=== PATIENT | male | born 1955 | race Hispanic/Latino ===

== ENCOUNTER 2023-06-18 09:57 | Emergency (ER) | payer MEDICARE, SELFPAY ==
[2023-06-18 10:01] VITALS: BP 162/72; PULSE 69; RESP 16; TEMP 36.6; O2SAT 100
--- NOTE | 2023-06-18 10:16 | ED.MALEGU ---
HPI - Male Genitourinary General Chief complaint: Urogenital-Male Stated complaint: frequent urination Time Seen by Provider: 06/18/23 10:03 History of Present Illness HPI Narrative: Pt presents with urinary urgency and frequency since last night. Pt denies discharge. Pt denies fever or flank pain. Related Data Allergies Allergy/AdvReac Type Severity Reaction Status Date / Time No Known Allergies Allergy Verified 06/18/23 09:58 Review of Systems Review of Systems: All systems reviewed & are unremarkable except as noted in HPI and below Exam Const: General: healthy appearing Nutritional Appearance: well nourished Limitations: language barrier Eyes: EOM: EOMs intact bilaterally Resp: Effort & Inspection: normal respiratory effort Auscultation: clear to auscultation bilaterally Cardio: Rate: regular rate Rhythm: regular rhythm GI: GI Palp: Yes Soft to palpation and No Tenderness to palpation present (GI) Auscultation: normal bowel sounds Other: bladder not noticablly distended : General: Yes bladder normal to palpation Back/Spine/Pelvis: Back: no CVA tenderness Skin: General skin exam: normal color Rashes: no rashes Wounds: no wounds Neuro: General: patient oriented x3, moves all extremities, no meningeal signs and no focal motor deficits Speech: normal speech Extrem: General: normal to inspection and no clubbing, cyanosis or edema Psych: Mental Status: mental status grossly normal Affect: normal affect Attitude: cooperative Course Vital Signs Vital signs: Vital Signs Temperature 97.8 F 06/18/23 10:01 Pulse Rate 69 06/18/23 10:01 Respiratory Rate 16 06/18/23 10:01 Blood Pressure 162/72 H 06/18/23 10:01 Pulse Oximetry 100 06/18/23 10:01 Oxygen Delivery Room Air 06/18/23 10:01 Temperature 97.8 F 06/18/23 10:01 Pulse Rate 69 06/18/23 10:01 Respiratory Rate 16 06/18/23 10:01 Blood Pressure 162/72 H 06/18/23 10:01 Pulse Oximetry 100 06/18/23 10:01 Oxygen Delivery Room Air 06/18/23 10:01 MDM - Male Genitourinary MDM Narrative Medical decision making narrative: uti vs bph will get UA. UA looks fine, likely BPH. will start on flomax and have follow up with urology. Lab Data Labs: Lab Results 06/18/23 Range/Units 10:36 Urine Color Yellow (Yellow) Urine Appearance Clear (Clear) Urine pH 5.5 (5.0-9.0) Ur Specific [place] 1.017 (1.001-1.035) Urine Protein Negative (Negative) mg/dL Urine Glucose (UA) 3+ H (Negative) mg/dL Urine Ketones Negative (Negative) mg/dL Ur Blood (Man) 1+ H (Negative) Urine Nitrate Negative (Negative) Urine Bilirubin Negative (Negative) Urine Urobilinogen 0.2 (<2.0) mg/dL Leukocyte Esterase Rfl Negative (Negative) ELO/UL Urine RBC 0-2 (0-2) /hpf Urine WBC 0-5 /hpf Ur Squamous Epith Cells None seen (Few) /hpf Urine Bacteria None seen /hpf Urine Casts 0-2 Discharge Plan Discharge Clinical Impression: Benign prostatic hyperplasia (BPH) with urinary urgency Patient Disposition: Home, Self-Care Condition: Stable Instructions: Antibiotic Form, Enlarged Prostate (BPH) (ED) Prescriptions: New tamsulosin [Flomax] 0.4 mg capsule 0.4 mg PO DAILY Qty: 30 0RF Follow-up/Referrals: Herminio Monae MD [Physician] - PHYSICIAN,GUIDANCE SECRETARY [Non-Staff] -
[2023-06-18 10:46] LABS: Appearance Urine Clear (Clear); Bacteria Urine None Seen /hpf; Bilirubin Urine Negative (Negative); Blood Urine 1+ (Negative); Color Urine Yellow (Yellow); Glucose Urine UA 3+ mg/dL (Negative); Ketones Urine Negative (Negative); Leukocyte Esterase Ur Negative LEU/UL (Negative); Nitrate Urine Negative (Negative); Non Pathogenic Casts 0-2; Protein Urine Negative (Negative); RBC Urine 0-2 /hpf (0-2); Specific Grav Ur 1.017 (1.001-1.035); Squamous Epithelial Cell Urine None seen /hpf (Few); Urobilinogen Urine 0.2 mg/dL (<2.0); WBC Urine 0-5 /hpf; pH Urine 5.5 (5.0-9.0)
[2023-06-18 10:57] LABS: Add Urine Microscopic? YES
== END 2023-06-18 12:34 | disposition home or self-care (01) ==
PROVIDERS: Physician Assistant; Emergency Provider Emergency Medicine
DX: N40.0 Benign prostatic hyperplasia without lower urinary tract symptoms (principal); R39.15 Urgency of urination
CPT/HCPCS: 81001; 99283

== ENCOUNTER 2023-10-18 20:34 | Emergency (ER) | payer MEDICARE, SELFPAY ==
[2023-10-18] VITALS (7 sets, daily range): BP systolic 155–200; BP diastolic 64–88; PULSE 85; RESP 18; TEMP 35.8; O2SAT 96–100
--- NOTE | ~2023-10-18 | CT_ITS ---
EXAMINATION: CT abdomen pelvis w con DATE: 10/19/2023 00:06 INDICATION: Urinary retention and hematuria. TECHNIQUE: Computed tomography (CT) of the abdomen and pelvis was performed without intravenous contr ast. The dose-length product was 653.01 mGy-cm. COMPARISON: None FINDINGS: Mild atelectasis in the bilateral lower lungs. Small pneumatocele at the basilar left lower lobe. Hea rt size is normal. No pericardial or pleural effusion. There is peripheral discontiguous puddling of contrast/with a couple large cavernous hemangiomas in the liver the largest in the right hepatic lobe measuring 7.4 cm and 4.1 minutes and the left hepatic lobe. There are also couple smaller flash fill ing hemangiomas measuring 1.3 cm at the dome of the liver and 1.9 cm in the caudate lobe. There is an additional 1 cm low-attenuation lesion with small lobular region of enhancement at the anterior dome most likely an additional small hemangioma but too small to definitively characterize. Gallbladder, spleen, pancreas, bilateral adrenal glands are normal. Subcentimeter low-attenuation cyst at the lowe r pole of the left kidney. There is mild right hydroureteronephrosis which extends to the bladder. Th ere is a small diverticulum which appears to arise from the right ureterovesicular junction. There is a Robert catheter in the bladder, the bulb of which distorts anterior wall of the bladder due to mass which appears to fill the remainder of the bladder which measures 8.9 x 7.7 cm maximal transaxial di mensions. There is also prostatomegaly which is difficult to distinguish from the base of the bladder . Bowels including the appendix are normal. No free intraperitoneal gas or fluid. No pathologically e nlarged abdominal or pelvic lymphadenopathy. Mild lumbar dextro scoliosis with moderate spondylosis. Transitional sacralized L5 segment. Likely small sclerotic bone islands at the left femoral head and a couple in the right innominate bone. IMPRESSION: 1. Material of heterogeneous attenuation filling the bladder. This could represent clot however it ap pears to exert significant enough mass effect upon the Robert catheter bulb that it distorts the anter ior wall of the bladder which raises significant concern for an intraluminal malignant mass either of bladder or prostatic origin. Reviewed, dictated and finalized at location A. SAMPLER IMPRESSION: 1. Material of heterogeneous attenuation filling the bladder. This could repres ent clot however it appears to exert significant enough mass effect upon the Fo nancy catheter bulb that it distorts the anterior wall of the bladder which raise s significant concern for an intraluminal malignant mass either of bladder or p rostatic origin.
--- NOTE | 2023-10-18 22:11 | ED.GENADULT ---
HPI - General Adult General Chief complaint: Urogenital-Male Stated complaint: blood in urine Time Seen by Provider: 10/18/23 21:39 Source: patient Mode of arrival: ambulatory Limitations: no limitations History of Present Illness HPI narrative: This is a 68-year-old male with PMH of BPH who presents to the ED with chief complaint of suprapubic discomfort and hematuria beginning today. Reports he has urgency to go but does not feel like he could go here. Reports he has had worsening nocturia x2 months. Denies fevers, chills, nausea, vomiting, dysuria, flank pain, back pain. Related Data Allergies Allergy/AdvReac Type Severity Reaction Status Date / Time No Known Allergies Allergy Verified 06/18/23 09:58 Review of Systems Review of Systems: All systems as dictated in HPI Exam Narrative: GENERAL: Well-appearing, well-nourished, and in no acute distress. HEAD: Normocephalic, atraumatic. EYES: PERRLA and EOMI. ENT: Nares clear, no rhinorrhea or epistaxis. Mucous membranes moist. Oropharynx without tonsillar hypertrophy exudate or other lesions. NECK: Supple. No adenopathy or masses. CHEST: No respiratory distress. Clear to auscultation. No wheezes rales or rhonchi HEART: Regular rate and rhythm. No murmur heard. Normal peripheral pulses. ABDOMEN: Soft, nontender, nondistended, normal active bowel sounds. Negative bilateral flank tenderness. MSK: Normal range of motion. No edema. SKIN: Warm, dry, no rash. NEURO: Alert and oriented x3. No focal deficits. PSYCH: Normal mood and affect. Course Course Emergency Course: Consult 0100: Spoke with Dr. Turk (urology), recommends having the patient follow-up in clinic. They can be sent home with Robert and leg bag as long as they remain nontoxic appearing. Vital Signs Vital signs: Vital Signs Temperature 96.5 F L 10/18/23 20:57 Pulse Rate 85 10/18/23 20:57 Respiratory Rate 18 10/18/23 20:57 Blood Pressure 200/88 H 10/18/23 20:57 Pulse Oximetry 100 10/18/23 20:57 Oxygen Delivery Room Air 10/18/23 20:57 Temperature 96.5 F L 10/18/23 20:57 Pulse Rate 85 10/18/23 20:57 Respiratory Rate 18 10/18/23 20:57 Blood Pressure 200/88 H 10/18/23 20:57 Pulse Oximetry 100 10/18/23 20:57 Oxygen Delivery Room Air 10/18/23 20:57 Medical Decision Making MDM Narrative Medical decision making narrative: This is a 68-year-old male who presents to the ED with chief complaint of urinary retention and hematuria. Vitals are show elevated blood pressure but otherwise normal. Exam is benign. No acute abdomen or flank pain. He was unable to provide a urine sample for us he was catheterized and had gross hematuria with the sample. UA shows blood and 50-75 blood cells. No leuks or nitrites. CT abdomen pelvis with contrast shows 1. Material of heterogeneous attenuation filling the bladder. This could represent clot however it appears to exert significant enough mass effect upon the Robert catheter bulb that it distorts the anterior wall of the bladder which raises significant concern for an intraluminal malignant mass either of bladder or prostatic origin.. Discussed the case with Urology who recommends having the patient follow-up with them in clinic. Discharge home with Robert bag and antibiotics. Prescription for Keflex given. Pt will be discharged in stable condition. Return precautions given and supportive measures discussed. Pt is understanding and agreeable with plan for discharge and follow-up with PCP/specialist Vital Signs Vital Signs: Vital Signs Temperature 96.5 F L 10/18/23 20:57 Pulse Rate 85 10/18/23 20:57 Respiratory Rate 18 10/18/23 20:57 Blood Pressure 200/88 H 10/18/23 20:57 Pulse Oximetry 100 10/18/23 20:57 Oxygen Delivery Room Air 10/18/23 20:57 Temperature 96.5 F L 10/18/23 20:57 Pulse Rate 85 10/18/23 20:57 Respiratory Rate 18 10/18/23 20:57 Blood Pressure 200/88 H 10/18/23 20:57
[2023-10-18 23:16] LABS: Basophils Absolute Auto 0.1 K/mm3 (0.0-0.1); Basophils Percent Auto 0.5 % (0.2-1.2); Eosinophils Absolute Auto 0.2 K/mm3 (0-0.3); Eosinophils Percent Auto 1.4 % (0-4.4); Hematocrit 32.9 % (42.0-52.0); Hemoglobin 11.3 g/dL (14.0-18.0); Immature Granulocyte Absolute 0.05 K/mm3 (0.00-0.031); Immature Granulocyte Percent A 0.3 % (0-0.5); Lymphocytes Absolute Auto 1.79 K/mm3 (0.9-3.2); Lymphocytes Percent Auto 12.1 % (18.3-44.2); Mean Corpuscular HGB Conc 34.3 g/dl (32-36); Mean Corpuscular Hemoglobin 30.2 pg (26-34); Mean Platelet Volume 9.8 fl (7.4-10.4); Monocytes Absolute Auto 0.6 K/mm3 (0.1-0.6); Monocytes Percent Auto 4.1 % (2.6-8.5); Neutrophils Percent Auto 81.6 % (45.5-73.1); Platelet Count Result 380 k/mm3 (150-375); Red Blood Count 3.74 M/mm3 (4.6-6.20); Red Cell Distribution Width 14.4 % (11.5-14.5); White Blood Count 14.7 K/mm3 (4.5-10.0)
[2023-10-18 23:50] LABS: Alanine Aminotransferase 36 U/L (6-50); Albumin Level 4.3 g/dL (3.5-5.1); Alkaline Phosphatase 87 U/L (38-126); Anion Gap 11 mmol/L (8-16); Aspartate Amino Transferase 30 U/L (17-59); Bilirubin,Total 0.9 mg/dL (0.2-1.3); Blood Urea Nitrogen 20 mg/dL (9-20); Calcium 8.9 mg/dL (8.4-10.2); Carbon Dioxide 24 mmol/L (22-30); Chloride 103 mmol/L (98-107); Estimated CRCL calculation 65 ml/min; Estimated Glomerular Filt Rate > 60; Glucose 248 mg/dL (65-110); Potassium 4.2 mmol/L (3.4-5.0); Sodium 138 mmol/L (137-145)
--- NOTE | 2023-10-18 23:59 | PC.NURSE ---
Able to place 14g coude catheter after multiple attempts with 16g and one additional 14g coude. Urojet placed prior to last attempt and able to pass. Pt has dark red blood from tucker and urine sample sent. ERP notified of hematuria, concern for clotting, and inability to pass larger catheter.
[2023-10-19] VITALS (11 sets, daily range): BP systolic 149–172; BP diastolic 69–136; PULSE 55; RESP 14; O2SAT 98–100
[2023-10-19] MEDS: LIDOCAINE HCL 2% GEL UROJET 10 ML PKG (00:01)
[2023-10-19 00:13] LABS: Appearance Urine Turbid (Clear); Bilirubin Urine Negative (Negative); Blood Urine 2+ (Negative); Glucose Urine UA 2+ mg/dL (Negative); Ketones Urine Negative (Negative); Leukocyte Esterase Ur Negative LEU/UL (Negative); Nitrate Urine Negative (Negative); Protein Urine 4+ mg/dL (Negative); Urobilinogen Urine 0.2 mg/dL (<2.0)
[2023-10-19 00:14] LABS: RBC Urine >100 /hpf (0-2); Specific Grav Ur 1.038 (1.001-1.035)
[2023-10-19 00:15] LABS: Bacteria Urine None seen /hpf; Color Urine Red (Yellow); Squamous Epithelial Cell Urine Few /hpf (Few); WBC Urine 51-75 /hpf
[2023-10-19 00:16] LABS: Add Urine Microscopic? YES
--- NOTE | 2023-10-19 01:27 | PC.NURSE ---
PT's tucker changed to leg bag and discussed care with pt. Pt verbalized understanding and return demonstrated.
--- NOTE | 2023-10-19 01:49 | PC.NURSE ---
Pt having leaking around meatus. ERP notified and states that it will likely continue to happen. Pt given mesh underwear and pad to catch leaking. Discussed with pt to purchase men's disposable briefs to contain leakage and that the urologist would likely be able to improve situation when he sees them next week. Verbalized understanding.
== END 2023-10-19 01:50 | disposition home or self-care (01) ==
PROVIDERS: Emergency Provider Physician Assistant
DX: N40.1 Benign prostatic hyperplasia with lower urinary tract symptoms (principal); R33.8 Other retention of urine; R31.9 Hematuria, unspecified; N32.89 Other specified disorders of bladder
CPT/HCPCS: 36415; 51702; 74177; 80053; 81001; 85025; 87086; 99284; Q9967

== ENCOUNTER 2023-10-19 11:03 | Observation (INO) | payer MEDICARE, SELFPAY ==
[2023-10-19] VITALS (10 sets, daily range): BP systolic 146–192; BP diastolic 60–84; PULSE 59–69; RESP 12–18; TEMP 36.6; O2SAT 98–100; BMI 24.7
--- NOTE | 2023-10-19 13:08 | ED.GENADULT ---
HPI - General Adult General Chief complaint: Unspecified <Emilee Lucas PA-C - Last Filed: 10/19/23 20:16> Stated complaint: leaking catheter <Emilee Lucas PA-C - Last Filed: 10/19/23 20:16> Time Seen by Provider: 10/19/23 12:57 <Emilee Lucas PA-C - Last Filed: 10/19/23 20:16> History of Present Illness HPI narrative: 68-year-old male reports for evaluation for leaking around his Robert catheter for approximately 12 hours. Patient was seen in the ED yesterday for suprapubic abdominal discomfort and hematuria that started yesterday. CT abdomen pelvis performed shows material of heterogeneous attenuation filling the bladder. This could represent clot however appears to exert significant enough mass effect upon the Robert catheter bulb that it distorts the anterior wall of the bladder which raises significant concern for an intraluminal malignant mass either of bladder or prostatic origin. Urology was consulted and the patient was discharged home with Keflex and a Robert bag with urology follow-up. He reports today due to gross hematuria and leaking around his Robert catheter. States he has been taking his keflex as directed. He denies abdominal pain, flank pain, fever, nausea or vomiting, history of kidney stones, dysuria, penile or scrotal pain. Denies chest pain or shortness of breath. He has been taking Flomax. <Emilee Lucas PA-C - Last Filed: 10/19/23 20:16> Related Data Allergies/adverse reactions: Allergies Allergy/AdvReac Type Severity Reaction Status Date / Time No Known Allergies Allergy Verified 10/19/23 13:03 <Emilee Lucas PA-C - Last Filed: 10/19/23 20:16> Review of Systems Review of Systems: CONSTITUTIONAL: Denies fever, chills, or sweats. EYES: Denies visual changes, redness, or discharge. ENT: Denies rhinorrhea, congestion, sore throat, or otalgia. CARDIOVASCULAR: Denies chest pain, palpitations, or edema. RESPIRATORY: Denies cough or dyspnea. GASTROINTESTINAL: No abdominal pain, nausea or vomiting GENITOURINARY: See HPI SKIN: Denies rash or itching. MUSCULOSKELETAL: Denies back pain, joint pain, or myalgia. NEUROLOGIC: Denies headache, numbness, or weakness. PSYCHIATRIC: Denies anxiety or depression. <Emilee Lucas PA-C - Last Filed: 10/19/23 20:16> PMFSH Past Medical History Medical History: Medical History (Updated 10/20/23 @ 00:00 by Mariangel Andrade) Benign prostatic hyperplasia Hypertension <Emilee Lucas PA-C - Last Filed: 10/19/23 20:16> Surgical History Surgical History: Surgical History (Updated 10/19/23 @ 23:32 by Marycarmen Haq PA-C) No history of major surgery within 1 month <Emilee Lucas PA-C - Last Filed: 10/19/23 20:16> Family History Family History: Family History (Updated 10/19/23 @ 23:32 by Marycarmen Haq PA-C) Other Family history non-contributory <Emilee Lucas PA-C - Last Filed: 10/19/23 20:16> Social History Social History: Social History Social History: Surrogate medical decision maker: Katherine Yangiris, spouse. Code status: Full code. Smoking status: Never smoker Additional smoking assessment comments: smokes recreationally Alcohol intake: never Substance use: never Lack of Transportation: No Lack of Food: Never True Current Housing: I Have Housing Concerned About Future Housing: No Difficulty Paying Gas/Electric Bills: No Difficulty Paying for Meds: No Currently Unemployed: No Education: Grade School Difficulty w/ Childcare or Family Care: No Spiritual care concerns: No <Emilee Lucas PA-C - Last Filed: 10/19/23 20:16> Exam Narrative: GENERAL: Well-appearing, well-nourished, and in no acute distress. Patient resting comfortably in exam bed. He is pleasant and conversational. HEAD: Normocephalic, atraumatic. EYES: PERRLA and EOMI. ENT: Nares clear
[2023-10-19] MEDS: SODIUM CHLORIDE 0.9% IV 1,000 ML 999 ML IV CONT (13:55)
[2023-10-19] MEDS: LIDOCAINE HCL 2% GEL UROJET 10 ML PKG (13:56)
--- NOTE | 2023-10-19 13:58 | PC.NURSE ---
The catheter pt had in place VARNISH MIXER was removed intact and replaced with a 18Fr 3-way catheter
[2023-10-19 14:04] LABS: Basophils Absolute Auto 0.1 K/mm3 (0.0-0.1); Basophils Percent Auto 0.6 % (0.2-1.2); Eosinophils Absolute Auto 0.2 K/mm3 (0-0.3); Eosinophils Percent Auto 1.8 % (0-4.4); Immature Granulocyte Absolute 0.04 K/mm3 (0.00-0.031); Immature Granulocyte Percent A 0.4 % (0-0.5); Lymphocytes Percent Auto 17.4 % (18.3-44.2); Mean Corpuscular HGB Conc 34.4 g/dl (32-36); Mean Corpuscular Hemoglobin 30.6 pg (26-34); Mean Corpuscular Volume 88.9 fl (80-100); Mean Platelet Volume 9.7 fl (7.4-10.4); Monocytes Absolute Auto 0.6 K/mm3 (0.1-0.6); Monocytes Percent Auto 5.4 % (2.6-8.5); Neutrophils Absolute Auto 7.7 K/mm3 (1.3-6.7); Neutrophils Percent Auto 74.4 % (45.5-73.1); Platelet Count Result 347 k/mm3 (150-375); Red Cell Distribution Width 14.5 % (11.5-14.5); White Blood Count 10.4 K/mm3 (4.5-10.0)
[2023-10-19 14:17] LABS: Alanine Aminotransferase 31 U/L (6-50); Albumin Level 4.1 g/dL (3.5-5.1); Alkaline Phosphatase 82 U/L (38-126); Anion Gap 11 mmol/L (8-16); Aspartate Amino Transferase 24 U/L (17-59); Bilirubin,Total 0.9 mg/dL (0.2-1.3); Blood Urea Nitrogen 16 mg/dL (9-20); Carbon Dioxide 23 mmol/L (22-30); Chloride 104 mmol/L (98-107); Estimated CRCL calculation 85 ml/min; Estimated Glomerular Filt Rate > 60; Glucose 154 mg/dL (65-110); Potassium 4.2 mmol/L (3.4-5.0); Sodium 138 mmol/L (137-145)
[2023-10-19 14:21] LABS: INR 1.1; Prothrombin Time 14.3 Seconds (11.1-14.7)
[2023-10-19 14:22] LABS: Partial Thromboplastin Time 28.8 SECONDS (22.3-36.8)
--- NOTE | 2023-10-19 15:30 | PC.NURSE ---
Pt urinating around catheter, EDP Emilee GIL notified. Pt 18Fr catheter removed intact and replaced with 3 way 20Fr catheter.
[2023-10-19 17:41] LABS: Bacteria Urine 1+ /hpf; Need Manual Microscopic Reviewed; Non Pathogenic Casts 0-2; Squamous Epithelial Cell Urine None seen /hpf (Few); WBC Urine >100 /hpf (0-3)
[2023-10-19 17:43] LABS: Appearance Urine Clear (Clear); Bilirubin Urine Negative (Negative); Blood Urine 3+ (Negative); Glucose Urine UA Negative (Negative); Ketones Urine Negative (Negative); Leukocyte Esterase Ur Trace LEU/UL (NEGATIVE); Nitrate Urine Negative (Negative); Protein Urine 3+ mg/dL (Negative); Specific Grav Ur 1.013 (1.001-1.035); Urobilinogen Urine 0.2 mg/dL (<2.0)
[2023-10-19 17:45] LABS: Color Urine Red (Yellow); RBC Urine >100 /hpf (0-2)
[2023-10-19 17:47] LABS: Add Urine Microscopic? YES
--- NOTE | 2023-10-19 18:50 | ECG_ITS ---
Measurements Intervals [place] Rate: 59 P: 64 KS: 247 QRS: -3 QRSD: 89 T: 44 QT: 448 QTc: 447 Interpretive Statements SINUS BRADYCARDIA WITH FIRST DEGREE AV BLOCK BASELINE ARTIFACT BORDERLINE ECG NO PREVIOUS ECG AVAILABLE FOR COMPARISON Electronically Signed On 10-20-2023 11:51:48 [employer] by Akira Roche M.D.
--- NOTE | 2023-10-19 22:11 | PM.IMHP ---
H&P: HPI History of Present Illness Date/Time: 10/19/23 21:00 Chief Complaint: Robert catheter leaking. Narrative: This is a pleasant 68-year-old male with benign prostatic hyperplasia and hypertension who presented to the emergency department via private vehicle from home for evaluation of leaking around his Robert catheter. The patient provides the following history. He was seen in the ED yesterday with complaints of suprapubic discomfort and hematuria. CT scan at that time showed material of heterogeneous attenuation filling the bladder which could represent clot though there were concerns for possible intraluminal malignant mass. Case was discussed with Urology who recommended having the patient follow-up with them in clinic. He was discharged with a Robert catheter and a prescription for antibiotics. Since that time he has started to leak around the Robert catheter and he has noticed gross blood in the urine. A 20 [place] Robert catheter was placed in the ED and the leaking has ceased. He has been started on CBI and he is being admitted in this setting for further treatment neurology consultation. Vital signs have been stable since arrival. Hemoglobin and renal function are also stable. He feels better now that the Robert catheter is draining appropriately. He denies fever, chills, and sweats. No nausea or vomiting. No current back or abdominal discomfort. Review of Systems Review of Systems: Twelve systems were reviewed and are negative except for as per HPI. [facility] Past Medical History Medical History (Updated 10/19/23 @ 23:31 by Marycarmen Haq PA-C) Benign prostatic hyperplasia Hypertension Surgical History Surgical History (Updated 10/19/23 @ 23:32 by Marycarmen Haq PA-C) No history of major surgery within 1 month Family History Family History (Updated 10/19/23 @ 23:32 by Marycarmen Haq PA-C) Other Family history non-contributory Social History Social History Social History: Surrogate medical decision maker: Katherine Haile, spouse. Code status: Full code. Smoking status: Never smoker Additional smoking assessment comments: smokes recreationally Alcohol intake: never Substance use: never Lack of Transportation: No Lack of Food: Never True Current Housing: I Have Housing Concerned About Future Housing: No Difficulty Paying Gas/Electric Bills: No Difficulty Paying for Meds: No Currently Unemployed: No Education: Grade School Difficulty w/ Childcare or Family Care: No Spiritual care concerns: No Meds Home Medications and Allergies Home Medications Medication Instructions Recorded Confirmed Type tamsulosin 0.4 mg capsule (Flomax) 0.4 mg PO DAILY #30 caps 06/18/23 10/19/23 Rx cephalexin 500 mg capsule 500 mg PO Q8H 1 week #21 caps 10/19/23 10/19/23 Rx Allergies Allergy/AdvReac Type Severity Reaction Status Date / Time No Known Allergies Allergy Verified 10/19/23 13:03 Vital Signs Vital Signs - 24 hr 10/19/23 11:31 10/19/23 13:00 10/19/23 15:29 Temperature 97.8 F Pulse Rate 60 59 L 64 Respiratory Rate 18 13 15 Blood Pressure 146/60 H 192/84 H 175/72 H Pulse Oximetry 98 100 100 10/19/23 15:59 10/19/23 17:15 10/19/23 18:03 Temperature Pulse Rate 61 61 69 Respiratory Rate 18 18 18 Blood Pressure 183/77 H 178/68 H 172/67 H Pulse Oximetry 100 100 100 10/19/23 18:51 10/19/23 19:13 10/19/23 22:04 Temperature Pulse Rate 60 59 L 61 Respiratory Rate 12 15 13 Blood Pressure 162/75 H 180/77 H 147/73 H Pulse Oximetry 100 100 100 Exam Narrative: General: A well-developed, nontoxic-appearing gentleman in the semi-Rivera position in bed in no acute distress. He is in good spirits and humor. Weight: 67.3 kg. BMI: 24.7. HEENT: PERRL, EOMI. Sclera anicteric. Oral mucosa moist. Neck: Supple. Respiratory: Lungs are clear to auscultation bilaterally. Cardiovascular:
--- NOTE | 2023-10-19 22:40 | ADMGEN ---
This patient, Home Mejia, was admitted to 3 Medical Room 342-01. Patient/family oriented to hospital policies and general routines including ID bracelet, bed and alarms, visiting hours, pain management, procedures, bathroom and other care routines, personal items, smoking policy, room service/diet, and visiting hours. Information on how to activate the Rapid Response Team has been discussed. Patient/Family are encouraged to report perceived risks to care and to ask questions if they do not understand what they are told or what they should do.
[2023-10-20] VITALS (8 sets, daily range): BP systolic 143–170; BP diastolic 62–75; PULSE 59–76; RESP 14–20; TEMP 36.4–36.8; O2SAT 96–100
[2023-10-20 06:23] LABS: Hematocrit 32.3 % (42.0-52.0); Hemoglobin 10.9 g/dL (14.0-18.0); Mean Corpuscular HGB Conc 33.7 g/dl (32-36); Mean Platelet Volume 10.2 fl (7.4-10.4); Platelet Count Result 319 k/mm3 (150-375); Red Blood Count 3.63 M/mm3 (4.6-6.20); Red Cell Distribution Width 14.5 % (11.5-14.5); White Blood Count 14.2 K/mm3 (4.5-10.0)
[2023-10-20 06:41] LABS: Anion Gap 10 mmol/L (8-16); Blood Urea Nitrogen 11 mg/dL (9-20); Calcium 8.5 mg/dL (8.4-10.2); Carbon Dioxide 23 mmol/L (22-30); Chloride 103 mmol/L (98-107); Estimated CRCL calculation 100 ml/min; Estimated Glomerular Filt Rate > 60; Glucose 144 mg/dL (65-110); Potassium 4.1 mmol/L (3.4-5.0); Sodium 136 mmol/L (137-145)
--- NOTE | 2023-10-20 09:00 | WPDURCON ---
Assessment and Plan Assessment and plan (1) Gross hematuria: Code(s): R31.0 - Gross hematuria Status: Acute Assessment and Plan: Appreciate hospital medicine admission To OR today for cystoscopy and clot evacuation. Risks and benefits discussed with patient who was able to teach back. Specifically discussed risks of infection, injury to urethra/prostate/bladder/ureters, postoperative pain, need for CBI postop, rupture of bladder and anesthetic complication. Urology Consult Note HPI Date Seen: 10/20/23 Requesting Physician: Margaret Lemus DO Primary Care Provider: PHYSICIAN NOT ON STAFF Consult Narrative Narrative: Home Mejia is a 68 year old male who has had urinary retention and hematuria for several days. He was seen in the ER two days ago and a catheter was placed, he elected for discharge but returned yesterday evening. The small Robert was replaced with a 20F [address] and CBI initiated, it has clotted off intermittenly overnight requiring intervention by floor nursing. Currently it is running a fruit punch effluent. He denies pain. Reports ~30PY smoking history. Review of Systems Constitutional: Constitutional: Reports as per HPI and Reports no additional constitutional complaints Eyes: Eyes: Reports no additional eye complaints ENT: Reports system reviewed and no additional complaints, except as documented Cardiovascular: Cardiovascular: Reports no additional cardiovascular complaints Respiratory: Respiratory: Reports no additional respiratory complaints Gastrointestinal: Gastrointestinal: Reports no additional gastrointestinal complaints Genitourinary: Genitourinary: Reports hematuria, Reports dysuria, Denies flank pain, Denies urinary frequency, Denies urinary hesitancy, Denies urinary incontinence and Denies urinary urgency Musculoskeletal: Musculoskeletal: Reports no additional musculoskeletal complaints Integumentary/Breasts: Skin/Breast: Reports system reviewed and no additional complaints, except as docu Neurologic: Reports system reviewed and no additional complaints, except as documented Psychiatric: Psychiatric: Reports no additional psychiatric complaints [facility] Past Medical History Medical History (Updated 10/20/23 @ 00:00 by Mariangel Andrade) Benign prostatic hyperplasia Hypertension Surgical History Surgical History (Updated 10/19/23 @ 23:32 by Marycarmen Haq PA-C) No history of major surgery within 1 month Family History Family History (Updated 10/19/23 @ 23:32 by Marycarmen Haq PA-C) Other Family history non-contributory Social History Social History Social History: Surrogate medical decision maker: Katherine Haile, spouse. Code status: Full code. Smoking status: Never smoker Additional smoking assessment comments: smokes recreationally Alcohol intake: never Substance use: never Lack of Transportation: No Lack of Food: Never True Current Housing: I Have Housing Concerned About Future Housing: No Difficulty Paying Gas/Electric Bills: No Difficulty Paying for Meds: No Currently Unemployed: No Education: Grade School Difficulty w/ Childcare or Family Care: No Spiritual care concerns: No Meds Home Medications and Allergies Home Medications Medication Instructions Recorded Confirmed Type tamsulosin 0.4 mg capsule (Flomax) 0.4 mg PO DAILY #30 caps 06/18/23 10/19/23 Rx cephalexin 500 mg capsule 500 mg PO Q8H 1 week #21 caps 10/19/23 10/19/23 Rx Allergies Allergy/AdvReac Type Severity Reaction Status Date / Time No Known Allergies Allergy Verified 10/19/23 13:03 Vital Signs Vital Signs - 24 hr 10/19/23 11:31 10/19/23 13:00 10/19/23 15:29 Temperature 97.8 F Pulse Rate 60 59 L 64 Respiratory Rate 18 13 15 Blood Pressure 146/60 H 192/84 H 175/72 H Pulse Oximetry 98 100 100 Oxygen Delivery 10/19/23 15:59 10/19/23 17
--- NOTE | 2023-10-20 09:10 | PM.IMPN ---
Progress Note: A&P Assessment and Plan (1) Gross hematuria: Code(s): R31.0 - Gross hematuria Status: Acute Assessment and Plan: ?A [address] catheter has been inserted and he has been started on CBI. Robert catheter is no longer leaking. Urology has been consulted for their opinion (CT scan yesterday showed possible intraluminal malignant mass of either bladder or prostatic origin). Hemoglobin is stable and will be monitored. 10/20: Hgb 10.9/ Hct 32. Fruit punch colored urine in drainage bag and lana color in tubing. He reports scant drainage around catheter. Urology consult is appreciated. Plan to take to OR today for cysto and clot evacuation. (2) Abnormal urinalysis: Code(s): R82.90 - Unspecified abnormal findings in urine Status: Acute Assessment and Plan: UA shows trace leukocyte esterase, 1+ bacteria, and greater than 100 WBC. He has been started on ceftriaxone, pending urine culture. 10/20: WBC 14.2. Would not be surprised if his culture comes back negative given he was already on PO antibiotics prior to arrival. (3) Hypertension: Code(s): I10 - Essential (primary) hypertension Status: Acute Assessment and Plan: Blood pressures were reviewed and they have been running a bit high. He does not remember the name of the antihypertensive that he is on at home and this will need to be clarified with his pharmacy tomorrow so it may be resumed. 10/20: I called both [facility] [place] and [facility] but neither pharmacy has ever filled any antihypertensive medications for this patient. [facility] last filled an antibiotic in May of this year and [facility] filled a prescription yesterday for his Keflex. Will start on Amlodipine 5 mg PO daily with prn hydralazine for SBP > 180 mm hg. Plan Feeding: NPO for now Analgesia:tylenol Thromboembolic prophylaxis: SCD Ulcer prophylaxis: na Glycemic control: na Bowel regimen: na Lines: PIV Antibiotics: Rocephin Disposition: Home when medically stable Subjective Date/time seen: 10/20/23 09:10 Interval history: HPI obtained from the chart, This is a pleasant 68-year-old male with benign prostatic hyperplasia and hypertension who presented to the emergency department via private vehicle from home for evaluation of leaking around his Robert catheter. The patient provides the following history. He was seen in the ED yesterday with complaints of suprapubic discomfort and hematuria. CT scan at that time showed material of heterogeneous attenuation filling the bladder which could represent clot though there were concerns for possible intraluminal malignant mass. Case was discussed with Urology who recommended having the patient follow-up with them in clinic.? He was discharged with a Robert catheter and a prescription for antibiotics. Since that time he has started to leak around the Robert catheter and he has noticed gross blood in the urine. A 20 Armenian Robert catheter was placed in the ED and the leaking has ceased. He has been started on CBI and he is being admitted in this setting for further treatment neurology consultation. Vital signs have been stable since arrival. Hemoglobin and renal function are also stable. He feels better now that the Robert catheter is draining appropriately. He denies fever, chills, and sweats. No nausea or vomiting. No current back or abdominal discomfort. 10/20: Patient is seen resting in bed and appears comfortable. He denies complaints other than some small leakage around his catheter, discomfort from the catheter, and bloody urine. He is set to go to OR today with Urology for cystoscopy and clot evacuation. Review of Systems Review of Systems: All systems reviewed & are unremarkable except as noted in HPI and below Exam Narrative: General: well appearing, well developed, well nourished, appears stated age. HEENT: normocephalic, atraumatic. Mucous membranes moist. EOMI, PERRLA, bilateral sclera anicteric, no c
--- NOTE | 2023-10-20 13:30 | PC.NURSE ---
Patient off of unit
--- NOTE | 2023-10-20 13:31 | WPDANESEPPF ---
Anes - Initial Pre Proc Eval Procedure: Operation Date: 10/20/23 13:30 Proposed Procedures p Cystoscopy, Evacuation Bladder Clots - Blaze Turk MD Date/Time: 10/20/23 13:31 Pre Op Diagnosis: Gross hematuria, abnormal UA Patient Data Age: 68 Gender: M Height: 1.65 m Weight: 67.3 kg Last Vital Signs Temp 36.5 C 10/20/23 06:00 Pulse 62 10/20/23 06:00 Resp 16 10/20/23 06:00 BP 164/72 H 10/20/23 06:00 Pulse Ox 100 10/20/23 06:00 O2 Del Method Room Air 10/20/23 08:50 Allergies Allergy/AdvReac Type Severity Reaction Status Date / Time No Known Allergies Allergy Verified 10/19/23 13:03 Home Medications Medication Instructions Recorded Confirmed Type tamsulosin 0.4 mg capsule (Flomax) 0.4 mg PO DAILY #30 caps 06/18/23 10/19/23 Rx cephalexin 500 mg capsule 500 mg PO Q8H 1 week #21 caps 10/19/23 10/19/23 Rx Laboratory Tests 10/19/23 10/19/23 10/20/23 13:54 16:52 05:29 WBC 10.4 H K/mm3 14.2 H K/mm3 (4.5-10.0) (4.5-10.0) RBC 3.60 L M/mm3 3.63 L M/mm3 (4.6-6.20) (4.6-6.20) Hgb 11.0 L g/dL 10.9 L g/dL (14.0-18.0) (14.0-18.0) Hct 32.0 L % 32.3 L % (42.0-52.0) (42.0-52.0) MCV 88.9 fl 89.0 fl (80-100) (80-100) MCH 30.6 pg 30.0 pg (26-34) (26-34) MCHC 34.4 g/dl 33.7 g/dl (32-36) (32-36) RDW 14.5 % 14.5 % (11.5-14.5) (11.5-14.5) Plt Count 347 k/mm3 319 k/mm3 (150-375) (150-375) MPV 9.7 fl 10.2 fl (7.4-10.4) (7.4-10.4) Immature Gran % (Auto) 0.4 % (0-0.5) Neut % (Auto) 74.4 H % (45.5-73.1) Lymph % (Auto) 17.4 L % (18.3-44.2) [place] % (Auto) 5.4 % (2.6-8.5) Eos % (Auto) 1.8 % (0-4.4) Baso % (Auto) 0.6 % (0.2-1.2) Lymph # (Auto) 1.80 K/mm3 (0.9-3.2) [place] # (Auto) 0.6 K/mm3 (0.1-0.6) Eos # (Auto) 0.2 K/mm3 (0-0.3) Baso # (Auto) 0.1 K/mm3 (0.0-0.1) Abs Immat Gran (auto) 0.04 H K/mm3 (0.00-0.031) Absolute Neuts (auto) 7.7 H K/mm3 (1.3-6.7) Absolute Nucleated RBC 0.0 K/mm3 (0.0-0.012) Nucleated RBC % 0.0 % (0.0-0.2) PT 14.3 Seconds (11.1-14.7) INR 1.1 APTT 28.8 SECONDS (22.3-36.8) Sodium 138 mmol/L 136 L mmol/L (137-145) (137-145) Potassium 4.2 mmol/L 4.1 mmol/L (3.4-5.0) (3.4-5.0) Chloride 104 mmol/L 103 mmol/L (98-107) (98-107) Carbon Dioxide 23 mmol/L 23 mmol/L (22-30) (22-30) Anion Gap 11 mmol/L 10 mmol/L (8-16) (8-16) BUN 16 mg/dL 11 D mg/dL (9-20) (9-20) Creatinine 0.60 L mg/dL 0.50 L mg/dL (0.7-1.3) (0.7-1.3) Estim Creat Clear Calc 85 ml/min 100 ml/min Estimated GFR > 60 > 60 (59 - ) (59 - ) Glucose 154 H mg/dL 144 H mg/dL (65-110) (65-110) Calcium 9.0 mg/dL 8.5 mg/dL (8.4-10.2) (8.4-10.2) Magnesium 2.0 mg/dL (1.6-2.3) Total Bilirubin 0.9 mg/dL (0.2-1.3) AST 24 U/L (17-59) ALT 31 U/L (6-50) Alkaline Phosphatase 82 U/L (38-126) Total Protein 7.0 g/dL (6.3-8.2) Albumin 4.1 g/dL (3.5-5.1) Urine Color Red H (Yellow) Urine Appearance Clear (Clear) Urine pH 7.0 (5.0-9.0) Ur Specific [place] 1.013 (1.001-1.035) Urine Protein 3+ H mg/dL (Negative) Urine Glucose (UA) Negative mg/dL (Negative) Urine Ketones Negative mg/dL (Negative) Ur Blood (Man) 3+ H (Negative) Urine Nitrate Negative (Negative) Urine Bilirubin Negative (Negative) Urine Urobilinogen 0.2 mg/dL (<2.0) Ur Leukocyte Esterase Trace H ELO/UL (NEGATIVE) Add Ur Microanalysis Reviewed Urine RBC >100 H /hpf (0-2) Urine WBC >100 H /hpf
--- NOTE | 2023-10-20 13:34 | WPDHPUPDATE1 ---
History and Physical Update Update Date/Time: 10/20/23 13:34 History and Physical has been reviewed, including an updated exam of the patient. There are NO changes in the patient's condition. Risks, benefits, and alternatives have been discussed and questions answered. Patient agrees to proceed with procedure.
--- NOTE | 2023-10-20 14:30 | P.OP_ITS ---
Procedure Note - Detailed Date of Procedure 10/20/23 Pre-op Diagnosis Gross hematuria, abnormal UA Post-op Diagnosis Other (Gross hematuria, prostatomegaly) Procedure Performed 1. Cystoscopy and clot evacuation, fulguration of bleeding vessels. Surgeon Blaze Turk MD Anesthesia General (ETT) Indications This is a pleasant 68 year old man who presents for the second time with hematuria and now clot retention with obstruction of his indwelling catheter. CBI was started in the ER however, his catheter has clotted off multiple times. He elects for cystoscopy and clot evacuation in the operating room with possible TURBT. Findings 1. Large clot burden, approximately 250 mL evacuated. 2. No bladder masses, lesions or stones. 3. Prostatomegaly with trilobar hypertrophy noted. 4. Orthotopic ureteral orifices, uninjured at end of case. Description of Procedure After discussion of benefits and risks the patient offered informed written consent. He was taken to the operating room, anesthesia was induced, he was intubated without incident. He was transferred to the dorsal lithotomy position and prepped and draped in the standard sterile fashion. A call to order was performed. A 22F cystoscope was placed and significant clot burden noted, it was evacuated with a Kimani syringe. A resectoscope was then placed and more clot evacuated. The prostate was then fulgurated with a rollerball. There was no pa pillary tumor noted. The ureteral orifices were uninjured at the end of the case. The resectoscope was removed and a 24F CBI catheter was placed. It was irrigated with a cath tipped syringe easily. CBI was started, he was cleaned and dried of betadine prep and transferred to the supine position and awoken from anesthesia and taken to the PACU having suffered no apparent complication. Estimated Blood Loss 5 Urine Output 1,600 Drains Yes (24F 3 way CBI catheter) Complications No immediate complications Disposition PACU
--- NOTE | 2023-10-20 15:54 | SUR.PHASEI ---
1540: report called to floor
[2023-10-20] MEDS: ACETAMINOPHEN 325 MG TABLET 650 MG PO (20:57)
[2023-10-21] VITALS: BP 141/65; PULSE 70; RESP 14; TEMP 36.6; O2SAT 99
[2023-10-21 04:45] VITALS: BP 152/69; PULSE 61; RESP 14; TEMP 36.5; O2SAT 100
[2023-10-21 05:58] LABS: Basophils Percent Auto 0.2 % (0.2-1.2); Eosinophils Percent Auto 0.1 % (0-4.4); Hematocrit 32.5 % (42.0-52.0); Immature Granulocyte Absolute 0.08 K/mm3 (0.00-0.031); Immature Granulocyte Percent A 0.4 % (0-0.5); Lymphocytes Absolute Auto 1.18 K/mm3 (0.9-3.2); Lymphocytes Percent Auto 6.2 % (18.3-44.2); Mean Corpuscular HGB Conc 33.8 g/dl (32-36); Mean Corpuscular Hemoglobin 30.2 pg (26-34); Mean Corpuscular Volume 89.3 fl (80-100); Mean Platelet Volume 10.2 fl (7.4-10.4); Monocytes Absolute Auto 0.9 K/mm3 (0.1-0.6); Monocytes Percent Auto 4.9 % (2.6-8.5); Neutrophils Absolute Auto 16.8 K/mm3 (1.3-6.7); Neutrophils Percent Auto 88.2 % (45.5-73.1); Platelet Count Result 362 k/mm3 (150-375); Red Blood Count 3.64 M/mm3 (4.6-6.20); Red Cell Distribution Width 14.2 % (11.5-14.5)
[2023-10-21 06:29] LABS: Alanine Aminotransferase 24 U/L (6-50); Albumin Level 3.7 g/dL (3.5-5.1); Alkaline Phosphatase 89 U/L (38-126); Anion Gap 7 mmol/L (8-16); Aspartate Amino Transferase 22 U/L (17-59); Bilirubin,Total 1.1 mg/dL (0.2-1.3); Blood Urea Nitrogen 15 mg/dL (9-20); Calcium 8.3 mg/dL (8.4-10.2); Carbon Dioxide 25 mmol/L (22-30); Chloride 101 mmol/L (98-107); Estimated CRCL calculation 85 ml/min; Estimated Glomerular Filt Rate > 60; Glucose 159 mg/dL (65-110); Sodium 133 mmol/L (137-145)
--- NOTE | 2023-10-21 07:36 | WPDUROPN2 ---
Progress Note: A&P Assessment and Plan (1) Gross hematuria: Code(s): R31.0 - Gross hematuria Status: Acute Assessment and Plan: Gross hematuria resolved. Can remove Robert for a voiding trial today. If all goes well he can be discharged home Subjective Subjective Date/Time Seen: 10/21/23 07:36 Interval history: Urine is clear with CBI basically off. Notes some bladder spasms Exam Narrative: No acute distress. Urine is clear Family present in the room Objective Data Vital Signs Vital Signs: Vital Signs - 24 hr 10/20/23 08:50 10/20/23 14:36 10/20/23 14:50 Temperature 98.3 F Pulse Rate 75 61 Respiratory Rate 14 18 Blood Pressure 148/75 H 143/65 H Pulse Oximetry 100 100 Oxygen Delivery Room Air Simple Face Mask Room Air Oxygen Flow Rate 8 10/20/23 15:00 10/20/23 15:15 10/20/23 15:28 Temperature Pulse Rate 61 60 59 L Respiratory Rate 20 18 16 Blood Pressure 152/67 H 157/69 H 161/66 H Pulse Oximetry 100 100 100 Oxygen Delivery Room Air Room Air Room Air Oxygen Flow Rate 10/20/23 16:09 10/20/23 20:00 10/20/23 20:00 Temperature 97.6 F 98.0 F Pulse Rate 62 76 Respiratory Rate 16 16 Blood Pressure 170/62 H 156/67 H Pulse Oximetry 96 99 Oxygen Delivery Room Air Oxygen Flow Rate 10/21/23 00:00 10/21/23 04:45 Temperature 97.9 F 97.7 F Pulse Rate 70 61 Respiratory Rate 14 14 Blood Pressure 141/65 H 152/69 H Pulse Oximetry 99 100 Oxygen Delivery Oxygen Flow Rate Intake/Output Intake/Output: Intake & Output 10/18/23 10/19/23 10/20/23 10/21/23 23:59 23:59 23:59 23:59 Intake Total 4050 3540 150 Output Total 87184 [id number] [id number] Meds/Results Medications: Active Medications Generic Name Dose Route Start Last Admin Trade Name Freq PRN Reason Stop Dose Admin Acetaminophen 650 mg 10/19/23 22:16 10/20/23 20:57 Acetaminophen 325 Mg Tablet PO 650 mg Q6H PRN Administration Mild Pain (1-3) or Fever Amlodipine Besylate 5 mg 10/21/23 09:00 Amlodipine Besylate 5 Mg Tablet PO QAM [facility] Hydralazine HCl 10 mg 10/20/23 09:15 Hydralazine Hcl 20 Mg/Ml Vial IV PUSH Q8H PRN Blood Pressure - High Ceftriaxone Sodium 1 gm in 50 mls @ 100 mls/hr 10/20/23 18:00 10/20/23 17:56 Rocephin 1 Gm/Ns 50 Ml IVPB Infused Q24H [facility] Infusion Tamsulosin HCl 0.4 mg 10/21/23 09:00 Tamsulosin Hcl 0.4 Mg Capsule PO DAILY [facility] Labs Labs: Laboratory Results - last 24 hr 10/21/23 05:24 WBC 19.0 H RBC 3.64 L Hgb 11.0 L Hct 32.5 L MCV 89.3 MCH 30.2 MCHC 33.8 RDW 14.2 Plt Count 362 MPV 10.2 Immature Gran % (Auto) 0.4 Neut % (Auto) 88.2 H Lymph % (Auto) 6.2 L [place] % (Auto) 4.9 Eos % (Auto) 0.1 Baso % (Auto) 0.2 Lymph # (Auto) 1.18 [place] # (Auto) 0.9 H Eos # (Auto) 0.0 Baso # (Auto) 0.0 Abs Immat Gran (auto) 0.08 H Absolute Neuts (auto) 16.8 H Absolute Nucleated RBC 0.0 Nucleated RBC % 0.0 Sodium 133 L Potassium 4.0 Chloride 101 Carbon Dioxide 25 Anion Gap 7 L BUN 15 Creatinine 0.60 L Estim Creat Clear Calc 85 Estimated GFR > 60 Glucose 159 H Calcium 8.3 L Total Bilirubin 1.1 AST 22 ALT 24 Alkaline Phosphatase 89 Total Protein 7.0 Albumin 3.7
[2023-10-21] MEDS: amLODIPine BESYLATE 5 MG TABLET PO (08:45)
[2023-10-21] MEDS: TAMSULOSIN HCL 0.4 MG CAPSULE PO (08:45)
--- NOTE | 2023-10-21 11:21 | PM.DS ---
DS: Admitting Diagnosis Discharge Date 10/21/2023 Admitting Diagnosis Gross hematuria, abnormal urinalysis, hypertension DS: Discharge Diagnosis Discharge Diagnosis (1) Gross hematuria: Code(s): R31.0 - Gross hematuria Status: Acute (2) Abnormal urinalysis: Code(s): R82.90 - Unspecified abnormal findings in urine Status: Acute (3) Hypertension: Code(s): I10 - Essential (primary) hypertension Status: Acute DS: Summary Hospital Course Reason for hospitalization: Patient was admitted for hematuria in leaking around Robert catheter history BPH Hospital Course: This is a 68-year-old male patient who was seen in the emergency department initially on 10/18 due to hematuria and suprapubic discomfort. He had Robert catheter replaced and was discharged for urology clinic follow-up. Patient returned the next day due to leaking around the catheter and gross hematuria. Catheter was changed to CBI catheterization and he was admitted. Patient went to the operating room on 10/20 for clot evacuation. CBI has cleared up. Patient was seen by Urology this morning who instructed to remove catheter as low as patient was able to void without retention he could be discharged. Patient had 33 mL in the bladder postvoid. Prescription written for tamsulosin and Norvasc which is a new prescription as his blood pressure remained elevated. Patient also instructed to finish his Keflex prescription. Status at Discharge Cognitive/behavioral status at discharge: Awake alert oriented Functional status at discharge: independent ambulation Overall status at discharge: patient is progressing back to baseline Time Spent with Patient Time attestation: Total time spent providing and/or coordinating discharge services: 33 minutes Time spent: Greater than 30 minutes Exam Narrative: General: well appearing, well developed, well nourished, appears stated age. HEENT: normocephalic, atraumatic. Mucous membranes moist. EOMI, PERRLA, bilateral sclera anicteric, no conjunctival injection. Neck supple without JVD, lymphadenopathy, or bruit. Respiratory: clear to auscultation bilaterally. No rales/rhonchi/wheezes. Cardiovascular: Regular rate and rhythm, normal S1-S2 upon auscultation. No murmurs, rubs, or clicks. PMI is nondisplaced, capillary re-fill less than 3 second. Abdomen: Soft, flat, no pulsatile masses, non-distended and non-tender. No rebound, no guarding. No CVA tenderness, no hepatosplenomegaly. Bowel sounds present to all four quadrants. Extremities: No cyanosis, clubbing, or edema present. Pulses are palpable 2/2. Active ROM to all four extremities. Neuro: Alert and orientated x 4. PERRLA. Cranial nerves 2-12 intact without focal deficit. Skin: Warm, dry, and intact, without rash, erythema, or lesion. : Robert catheter to drainage bag with CBI clear urine Lines: PIV Incisions: NA Psych: pleasant, cooperative, normal speech, normal affect, no hallucinations, no dysarthria DS: Data Data Completed and Pending Completed studies during hospitalization: Abdomen pelvis CT Labs on day of discharge: Labs from last 24 hours 10/21/23 05:24 WBC 19.0 H RBC 3.64 L Hgb 11.0 L Hct 32.5 L MCV 89.3 MCH 30.2 MCHC 33.8 RDW 14.2 Plt Count 362 MPV 10.2 Immature Gran % (Auto) 0.4 Neut % (Auto) 88.2 H Lymph % (Auto) 6.2 L [place] % (Auto) 4.9 Eos % (Auto) 0.1 Baso % (Auto) 0.2 Lymph # (Auto) 1.18 [place] # (Auto) 0.9 H Eos # (Auto) 0.0 Baso # (Auto) 0.0 Abs Immat Gran (auto) 0.08 H Absolute Neuts (auto) 16.8 H Absolute Nucleated RBC 0.0 Nucleated RBC % 0.0 Sodium 133 L Potassium 4.0 Chloride 101 Carbon Dioxide 25 Anion Gap 7 L BUN 15 Creatinine 0.60 L Estim Creat Clear Calc 85 Estimated GFR > 60 Glucose 159 H Calcium 8.3 L Total Bilirubin 1.1 AST 22 ALT 24 Alkaline Phosphatase 89 Total Protein 7.0 Albumin 3.7 Discharge Plan Discharge Attending physician
[2023-10-21 13:33] VITALS: BP 154/60; PULSE 96; RESP 16; TEMP 36.5; O2SAT 98
== END 2023-10-21 14:00 | disposition home or self-care (01) ==
LOC: ANHED 19:17 → ANH3MED 22:45
PROVIDERS: Nurse Practitioner Acute Care; Physician Assistant; Urology; Admitting Provider Internal Medicine; Emergency Provider Physician Assistant; Visit Provider Internal Medicine
PROC: 0TCB8ZZ Extirpation of Matter from Bladder, Via Natural or Artificial Opening Endoscopic (ICD-10-PCS; CPT 52001; principal; 2023-10-20 12:30)
DX: R31.0 Gross hematuria (principal); R82.90 Unspecified abnormal findings in urine; T83.038A Leakage of other urinary catheter, initial encounter; Y84.6 Urinary catheterization as the cause of abnormal reaction of the patient, or of later complication, without mention of misadventure at the time of the procedure; N40.0 Benign prostatic hyperplasia without lower urinary tract symptoms; I10 Essential (primary) hypertension; R00.1 Bradycardia, unspecified; I44.0 Atrioventricular block, first degree; F17.210 Nicotine dependence, cigarettes, uncomplicated; Z79.899 Other long term (current) drug therapy
CPT/HCPCS: 53899; 36415; 80048; 80053; 81001; 83735; 85025; 85027; 85610; 85730; 86850; 86900; 86901; 93005; 96361; 96374; 99285; A9270; G0378; J0330; J0696; J1200; J2405; J2704; J3010; J7030